=== PATIENT | male | born 1990 | race Caucasian/White ===

== ENCOUNTER 2021-04-03 07:29 | Emergency (ER) | payer BC ==
[2021-04-03 08:39] LABS: CORONAVIRUS COVID-19 NAA NEGATIVE (NEGATIVE)
--- NOTE | 2021-04-03 08:51 | CR ---
Chest: Frontal view of the chest was obtained. Comparison: No prior chest imaging is available. Patchy area of increased density is seen within the left mid chest most likely within the superior segment of the left lower lung. Lungs otherwise are clear. Heart size and mediastinum are normal. Bony structures show nothing acute. Impression: 1. Increased density as described above on the left side most likely representing pneumonia. Please correlate with the patient's symptoms. Diagnostic code #3
--- NOTE | 2021-04-03 09:04 | EDM.PDOC ---
ED HPI GENERAL MEDICAL PROBLEM - General Chief Complaint: Fever Stated Complaint: COUGH FEVER Time Seen by Provider: 04/03/21 07:46 Source of Information: Reports: Patient History Limitations: Reports: No Limitations - History of Present Illness INITIAL COMMENTS - FREE TEXT/NARRATIVE: The patient presents with a cough, fever, and left shoulder pain. He says he had the cough for about 3 weeks. He had a fever lat night of 101.5. He has left shoulder pain and chest pain. He has no shortness of breath. He has no abdominal pain, nausea or vomiting. He says his children were sick with bronchitis a few weeks ago. He does not smoke. He says about 3 days ago he was cleaning out an old barn that had mouse droppings. He has no medical problems. Onset: Gradual Duration: Week(s): (3) Location: Reports: Chest, Upper Extremity, Left (shoulder) Quality: Reports: Sharp Severity: Moderate Improves with: Reports: Immobilization Worsens with: Reports: Movement Context: Denies: Trauma Associated Symptoms: Reports: Chest Pain, Cough. Denies: Fever/Chills, Headaches, Nausea/Vomiting, Shortness of Breath Left Shoulder Pain Score (Numeric/FACES): 8 - Related Data Allergies Allergy/AdvReac Type Severity Reaction Status Date / Time No Known Allergies Allergy Verified 04/03/21 07:49 Home Meds: Home Meds Azithromycin [Zithromax] 250 mg PO DAILY #6 tab 04/03/21 [Rx] Past Medical History - Past Health History Medical/Surgical History: Denies Medical/Surgical History - Past Surgical History Other Musculoskeletal Surgeries/Procedures:: knee scope Social & Family History - Tobacco Use Tobacco Use Status *Q: Never Tobacco User Second Hand Smoke Exposure: No - Recreational Drug Use Recreational Drug Use: No ED ROS GENERAL - Review of Systems Review Of Systems: See Below Constitutional: Reports: No Symptoms HEENT: Reports: No Symptoms Respiratory: Reports: No Symptoms Cardiovascular: Reports: No Symptoms Endocrine: Reports: No Symptoms GI/Abdominal: Reports: No Symptoms : Reports: No Symptoms Musculoskeletal: Reports: Shoulder Pain (left) ED EXAM, GENERAL - Physical Exam Exam: See Below Exam Limited By: No Limitations General Appearance: Alert, No Apparent Distress Ears: Normal External Exam Nose: Normal Inspection Head: Atraumatic, Normocephalic Neck: Normal Inspection Respiratory/Chest: No Respiratory Distress, Lungs Clear, Normal Breath Sounds Cardiovascular: Regular Rate, Rhythm, No Edema, No Murmur GI/Abdominal: Soft, Non-Tender, No Organomegaly, No Mass Back Exam: Normal Inspection Extremities: Other (No pain upon palpation to the left shoulder) Neurological: Alert, Oriented, No Motor/Sensory Deficits #1 Interpretation EKG Date: 04/03/21 Time: 08:57 Rhythm: NSR Rate (Beats/Min): 95 [place]: LAD-Left [place] Deviation P-Wave: Present QRS: Normal ST-T: Normal QT: Normal Course - Vital Signs Last Recorded V/S: Last Vital Signs Temp 97.8 F 04/03/21 07:48 Pulse 99 04/03/21 07:48 Resp 16 04/03/21 07:48 BP 112/72 04/03/21 07:48 Pulse Ox 96 04/03/21 07:48 - Orders/Labs/Meds Orders: Active Orders 24 hr Category Date Time Status Cardiac Monitoring [RC] . DIRECTED Care 04/03/21 08:12 Active HANTAVIRUS ANTIBODIES, YADIRA [REF] Stat Lab 04/03/21 09:10 Ordered Isolation [COMM] Routine Oth 04/03/21 08:53 Ordered Labs: Laboratory Tests 04/03/21 04/03/21 04/03/21 Range/Units 07:54 08:27 08:27 WBC 16.47 H (4.23-9.07) K/mm3 RBC 4.72 (4.63-6.08) M/mm3 Hgb 15.1 (13.7-17.5) gm/dl Hct 43.9 (40.1-51.0) % MCV 93.0 H (79.0-92.2) fl MCH 32.0 (25.7-32.2) pg MCHC 34.4 (32.2-35.5) g/dl RDW Std Deviation 38.9 (35.1-43.9) fL Plt Count 185 (163-337) K/mm3 MPV 9.4 (9.4-12.3) fl Neut % (Auto) 85.7 H (34.0-67.9) % Lymph % (Auto) 4.7 L (21.8-53.1) % [place] % (Auto) 9.1 (5.3-12.2) % Eos % (Auto) 0 L (0.8-7.0) Baso % (Auto) 0.1 (0.1-1.2) % Neut # (Auto) 14.12 H (1.78-5.38) K/mm3 Lymph # (Auto) 0.77 L (1.32-3.57) K/mm3 [place] # (Auto) 1.50 H (0.30-0.82) K/mm3 Eos # (Auto) 0.00 L (0.04-0.54) K/mm3 Baso # (Auto) 0.02 (0.01-0.08) K/mm3 Sodium 138 (136-145) mEq/L Potassium 4.3 (3.5-5.1) mEq/L Chloride 102 (98-107) mEq/L Carbon Dioxide 26 (21-32) mEq/L Anion Gap 14.3 (5-15) BUN 15 (7-18) mg/dL Creatinine 1.2 (0.7-1.3) mg/dL Est Cr Clr Drug Dosing 102.75 mL/min Estimated GFR (MDRD) > 60 (>60) mL/min BUN/Creatinine Ratio 12.5 L (14-18) Glucose 117 H (70-99) mg/dL Calcium 8.4 L (8.5-10.1) mg/dL Total Bilirubin 1.2 H (0.2-1.0) mg/dL AST 23 (15-37) U/L ALT 37 (16-63) U/L Alkaline Phosphatase 63 (46-116) U/L Troponin I < 0.017 (0.00-0.056) ng/mL Total Protein 8.0 (6.4-8.2) g/dl Albumin 4.1 (3.4-5.0) g/dl Globulin 3.9 gm/dL Albumin/Globulin Ratio 1.1 (1-2) Influenza Type A RNA Negative (NEGATIVE) RSV RNA (INAAT) Positive H (NEGATIVE) Influenza Type B RNA Negative (NEGATIVE) SARS-CoV-2 RNA (MARVA) Negative (NEGATIVE) - Re-Assessments/Exams Free Text/Narrative Re-Assessment/Exam: 04/03/21 09:39 I ordered an EKG, CXR labs and COVID 19, influenza and RSV. His EKG shows a NSR with no acute changes. His CXR shows a left lower lobe. 04/03/21 09:41 His WBC was elevated at 16.47. His troponin is negative. His COVID and influenza are negative. His RSV is positive. He has RSV with a secondary pneumonia. I have also ordered a [place] virus because he was exposed to mouse droppings. Departure - Departure Time of Disposition: 10:00 Disposition: Home, Self-Care 01 Condition: Good Clinical Impression: RSV infection Pneumonia Qualifiers: Pneumonia type: due to unspecified organism Laterality: left Lung location: lower lobe of lung Qualified Code(s): J18.9 - Pneumonia, unspecified organism - Discharge Information *PRESCRIPTION DRUG MONITORING PROGRAM REVIEWED*: Not Applicable *COPY OF PRESCRIPTION DRUG MONITORING REPORT IN PATIENT ARTEMIO: Not Applicable Prescriptions: Azithromycin [Zithromax] 250 mg PO DAILY #6 tab Referrals: PCP,None [Primary Care Provider] - Danny Ramirez MD [Physician] - 1 Week Forms: ED Department Discharge Additional Instructions: Take the zithromax 2 pills on day 1 and 1 pill on day 2 through 5. [facility]. Take tylenol or motrin for any fever. You can use any over the counter cough medicine for the cough. Please return if you are worse. Sepsis Event Note (ED) - Evaluation Sepsis Screening Result: No Definite Risk - Focused Exam Vital Signs: Vital Signs Temp Pulse Resp BP Pulse Ox 04/03/21 07:48 97.8 F 99 16 112/72 96 - My Orders Last 24 Hours: My Active Orders 04/03/21 08:12 Cardiac Monitoring [RC] . DIRECTED 04/03/21 08:53 Isolation [COMM] Routine 04/03/21 09:10 HANTAVIRUS ANTIBODIES, YADIRA [REF] Stat - Assessment/Plan Last 24 Hours: My Active Orders 04/03/21 08:12 Cardiac Monitoring [RC] . DIRECTED 04/03/21 08:53 Isolation [COMM] Routine 04/03/21 09:10 HANTAVIRUS ANTIBODIES, YADIRA [REF] Stat
[2021-04-03 10:20] VITALS: BP 116/68; PULSE 90
== END 2021-04-03 10:14 | disposition home or self-care (01) ==
LOC: JD.ED 07:29
DX: J18.9 Pneumonia, unspecified organism (principal); B97.4 Respiratory syncytial virus as the cause of diseases classified elsewhere; Z20.822 Contact with and (suspected) exposure to COVID-19
CPT/HCPCS: 0240U; 36415; 71045; 80053; 84484; 85025; 86790; 87634; 93005; 99284